=== PATIENT | male | born 1990 | race American Indian/Alaskan Native ===

== ENCOUNTER 2019-07-05 18:16 | Emergency (ER) | payer OTHER ==
--- NOTE | 2019-07-05 18:42 | Emergency Department Report ---
Blank Doc - Documentation Documentation: 29-year-old male that presents with left shoulder pain after hitting shoulder. This initial assessment/diagnostic orders/clinical plan/treatment(s) is/are subject to change based on patient's health status, clinical progression and re- assessment by fellow clinical providers in the ED. Further treatment and workup at subsequent clinical providers discretion. Patient/guardians urged not to elope from the ED as their condition may be serious if not clinically assessed and managed. Initial orders include: 1- Patient sent to [facility] for further evaluation and treatm 2- xrays
[2019-07-05 18:50] VITALS: BP 131/85
--- NOTE | 2019-07-05 19:43 | XRay Report ---
LEFT SHOULDER 3 VIEWS INDICATION: shoulder pain. COMPARISON: No relevant prior imaging study available. FINDINGS: No fracture or dislocation. No significant soft tissue swelling. No foreign bodies. IMPRESSION: 1. No acute findings. Signer Name: Hunter Rader MD Signed: 07/05/2019 7:39 PM Workstation Name: [id number]
--- NOTE | 2019-07-05 21:47 | Emergency Department Report ---
Chief Complaint: Shoulder Injury Stated Complaint: (L) SHOULDER PAIN Time Seen by Provider: 07/05/19 18:40 - HPI History of Present Illness: 29-year-old -[place] male presents to the emergency room stating that he needs to be cleared to return back to work. Patient states that he had injured his left shoulder a few days ago by hitting up against a door frame. Patient states that today he just needs a clearance that he can return back to work. Patient reports to me he has no pain he has full range of motion. - Exam Vital Signs: Vital Signs 07/05/19 18:48 Temperature 98.3 F Pulse Rate 87 Respiratory 18 Rate Blood Pressure 131/85 O2 Sat by Pulse 99 Oximetry Physical Exam: Alert and oriented x3 no acute distress Left shoulder full range of motion nontender to palpate MSE screening note: Focused history and physical exam performed. Due to findings the following was ordered: 29-year-old -[place] male presents to the emergency room stating that he needs to be cleared to return back to work. Patient states that he had injured his left shoulder a few days ago by hitting up against a door frame. Patient states that today he just needs a clearance that he can return back to work. Patient reports to me he has no pain he has full range of motion. Left shoulder 3 view x-ray shows no acute findings. Patient return back to work. ED Medical Decision Making - Radiology Data Radiology results: report reviewed Patient: TRAVIS WINTERS MR#: [id number] : 1990 Acct:[id number] Age/Sex: 29 / M ADM Date: 07/05/19 Loc: ED Attending Dr: Ordering Physician: J LUIS SMITH NP Date of Service: 07/05/19 Procedure(s): XR shoulder 2+V LT Accession Number(s): [id number] cc: J LUIS SMITH NP Fluoro Time In Minutes: LEFT SHOULDER 3 VIEWS INDICATION: shoulder pain. COMPARISON: No relevant prior imaging study available. FINDINGS: No fracture or dislocation. No significant soft tissue swelling. No foreign bodies. IMPRESSION: 1. No acute findings. Signer Name: Hunter Rader MD Signed: 07/05/2019 7:39 PM Workstation Name: [id number] Transcribed By: ANABELLA Dictated By: Hunter Rader MD Electronically Authenticated By: Hunter Rader MD Signed Date/Time: 07/05/191938 DD/ 37 TD/TT: ED Disposition for MSE Clinical Impression: Contusion of left shoulder Qualifiers: Encounter type: initial encounter Qualified Code(s): S40.012A - Contusion of left shoulder, initial encounter Disposition: Z07 MED SCREENING EXAM-LEFT Is pt being admited?: No Does the pt Need Aspirin: No Condition: Stable Additional Instructions: X-ray of left shoulder shows no acute findings. Patient is cleared to return back to work. Forms: Work/School Release Form(ED)
== END 2019-07-05 22:09 | disposition left against medical advice (07) ==
LOC: ED 18:16
DX: S40.012A Contusion of left shoulder, initial encounter (principal)
CPT/HCPCS: 99283

== ENCOUNTER → 2019-07-25 14:44 | Emergency (ER) | payer OTHER | END | disposition left against medical advice (07) | LOC: ED 14:44 | DX: Z53.21 Procedure and treatment not carried out due to patient leaving prior to being seen by health care provider (principal) ==

== ENCOUNTER 2021-10-01 14:06 | Emergency (ER) | payer OTHER ==
[2021-10-01 14:59] VITALS: BP 117/81
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
== END 2021-10-02 01:07 | disposition home or self-care (01) ==
LOC: ED 14:06
DX: S39.012A Strain of muscle, fascia and tendon of lower back, initial encounter (principal); S46.811A Strain of other muscles, fascia and tendons at shoulder and upper arm level, right arm, initial encounter; G89.29 Other chronic pain; F17.200 Nicotine dependence, unspecified, uncomplicated; F12.90 Cannabis use, unspecified, uncomplicated; Z79.899 Other long term (current) drug therapy; V87.7XXA Person injured in collision between other specified motor vehicles (traffic), initial encounter; Y93.89 Activity, other specified; Y92.488 Other paved roadways as the place of occurrence of the external cause; Y99.8 Other external cause status
CPT/HCPCS: 72100; 99283